=== PATIENT | male | born 1965 | race Caucasian/White ===

== ENCOUNTER 2023-02-19 17:59 | Emergency (ER) | payer OTHER ==
[~2023-02-19] VITALS: Ht 167.6 cm; Wt 72.6 kg
[2023-02-19 18:40] VITALS: BP 130/80
== END 2023-02-19 19:43 | disposition home or self-care (01) ==
LOC: ER 17:59
DX: S81.052A Open bite, left knee, initial encounter (principal); Z23 Encounter for immunization; W54.0XXA Bitten by dog, initial encounter
CPT/HCPCS: 90375; 90376; 90471; 99283-25; A9270